=== PATIENT | female | born 1960 | race African-American/Black ===

== ENCOUNTER → 2017-04-26 | Outpatient (CLI) | payer OTHER | LOC: RAD 15:56 | DX: R05 Cough (principal); R50.9 Fever, unspecified ==

== ENCOUNTER 2019-03-06 21:38 | Emergency (ER) | payer OTHER ==
[~2019-03-06] VITALS: Ht 167.6 cm; Wt 79.4 kg
[2019-03-06] MEDS ORDERED: HUMALOG100 UNIT/1 SUBQ (21:49)
[2019-03-06] MEDS ORDERED: [UNRECOGNIZED DRUG - OTHER] SUBQ (21:50)
[2019-03-06] MEDS ORDERED: LISINOPRIL2.5 MG PO (21:52)
[2019-03-06] MEDS ORDERED: VITAMIN D3 (21:53)
[2019-03-06] MEDS ORDERED: SUPER THERAVIT1 EACH PO (21:53)
[2019-03-07 02:20] VITALS: BP 137/72
== END 2019-03-07 02:25 | disposition home or self-care (01) ==
LOC: ER 21:38
DX: E10.649 Type 1 diabetes mellitus with hypoglycemia without coma (principal); Z79.4 Long term (current) use of insulin